=== PATIENT | male | born 1950 ===

== ENCOUNTER 2025-09-23 05:10 | Day surgery (SDC) | payer OTHER ==
[2025-09-16 09:08] LABS: BASO % 0.3 % (0.1-1.2); EOS # 0.16 (0.04-0.54); EOS % 2.6 % (0.7-7.0); LYMPH # 0.75 (1.18-3.74); LYMPH % 12.3 % (19.3-53.1); MEAN PLATELET VOLUME 9.80 fl (9.4-12.4); MONO # 0.50 (0.24-0.82); MONO % 8.2 % (4.7-12.5); NEUT # 4.66 (1.56-6.13); NEUT % 76.4 % (34.0-71.1); RED CELL DISTRIBUTION WIDTH 12.3 % (11.6-14.4)
[2025-09-16 09:12] LABS: URINE APPEARANCE Clear; URINE BILIRRUBIN Negative (NEGATIVE); URINE BLOOD Negative; URINE COLOR Yellow; URINE GLUCOSE Negative (NEGATIVE); URINE KETONE Negative (NEGATIVE); URINE LEUKOCYTE Negative; URINE NITRATE Negative; URINE PROTEIN Negative (NEGATIVE); URINE UROBILINOGEN 0.2 E.U./dl
[2025-09-16 09:15] VITALS: BP 155/82
[2025-09-16 09:31] LABS: INR 0.99
[2025-09-16 09:38] LABS: BUN CREA RATIO 20.0 (7.0-25.0); CREATININE SERUM 1.78 mg/dL (0.70-1.30); GFR 37.35; GLUCOSE FASTING 101.0 mg/dL (65-100); OSMOLALITY SERUM 282.0 MOSM/KG (275-295)
[2025-09-16 09:40] LABS: URINE BACTERIA 1.1 uL (0.0-1933); URINE CAST 0.00 uL (0.0-1.40); URINE EPITHELIAL CELLS 1.0 uL (0.0-38.8); URINE RBC 0.0 uL (0.0-20.8); URINE WBC 0.9 uL (0.0-23.2)
[~2025-09-23] VITALS: Ht 172.7 cm; Wt 93.0 kg
[~2025-09-23 05:10] MED LIST: COZAAR100 MG PO; LIPITOR40 M1 PO; NEURONTIN300 MG; NORVASC2.5 M1 PO
[2025-09-23] MEDS ORDERED: CEFOXITIN SODIUM 2,000 MG VIAL IV ONE (06:11)
[2025-09-23] MEDS ORDERED: BUPIVACAINE HCL/MPF 0.5% 30ML VIAL ONE (07:10)
[2025-09-23] MEDS ORDERED: LIDOCAINE HCL 1%/EPINEPHRINE 20ML VIAL IJ ONE (07:10)
[2025-09-23] MEDS ORDERED: DEXAMETHASONE SODIUM PHOSPHATE 4 MG/ML VIAL ONE (07:20)
[2025-09-23] MEDS ORDERED: KETOROLAC TROMETHAMINE 30 MG VIAL ONE (07:20)
[2025-09-23] MEDS ORDERED: EPINEPHRINE HCL/PF 1 MG/ML AMPUL ONE (07:20)
[2025-09-23] MEDS ORDERED: SUGAMMADEX SODIUM 200 MG/2 ML VIAL IV ONE (07:20)
[2025-09-23] MEDS ORDERED: METHYLPREDNISOLONE ACETATE 80 MG/ML VIAL ONE (07:54)
[2025-09-23] MEDS ORDERED: CEFAZOLIN SODIUM 1,000 MG VIAL IV ONE (08:30)
[2025-09-23] MEDS ORDERED: TRAM1TAB98 PO (08:32)
[2025-09-23] MEDS ORDERED: DUI500 PO (08:32)
[2025-09-23] MEDS ORDERED: CEFAZOLIN SODIUM 1,000 MG VIAL ONE (08:45)
== END 2025-09-23 10:55 | disposition home or self-care (01) ==
LOC: CIR.AMB 05:10
PROVIDERS: ATTEND Orthopaedic Surgery Sports Medicine
DX: M23.321 Other meniscus derangements, posterior horn of medial meniscus, right knee (principal); M17.11 Unilateral primary osteoarthritis, right knee; M65.861 Other synovitis and tenosynovitis, right lower leg